=== PATIENT | female | born 1960 | race Caucasian/White ===

== ENCOUNTER 2019-11-09 06:50 | Day surgery (SDC) | payer OTHER, SELFPAY ==
[2019-10-27 08:42] VITALS: BMI 25.9
--- NOTE | 2019-10-29 12:38 | HP_ITS ---
Intake Vital Signs 10/27/19 Height 5 ft 6.5 in 10/27/19 Weight: 177 lb 4 oz 10/27/19 BMI 28.1 10/27/19 BP 152/85 H 10/27/19 Blood Pressure Location Rt brachial 10/27/19 Position Sitting 10/27/19 Respiration 20 H 10/27/19 Pulse 81 10/27/19 Temp 98.7 F 10/27/19 Temp Source Temporal 10/27/19 Pulse Oximetry (%) 96 Intake Visit Reasons: CSCOPE Chief Complaint: 3 year colonoscopy [employer] Required: No Is patient in pain?: No Allergies cimetidine [From Tagamet] Allergy (Verified 10/27/19 08:41) Hives cimetidine HCl [From Tagamet] Allergy (Verified 10/27/19 08:41) Hives Penicillins Allergy (Verified 10/27/19 08:41) Hives phenobarbital Allergy (Verified 10/27/19 08:41) Hives clarithromycin [From Biaxin] Adverse Reaction (Verified 10/27/19 08:41) Other metronidazole [From Flagyl] Adverse Reaction (Verified 10/27/19 08:41) Other Metronidazole HCl [From Flagyl] Adverse Reaction (Verified 10/27/19 08:41) Other ondansetron HCl [From Zofran] Adverse Reaction (Verified 10/27/19 08:41) Other prochlorperazine edisylate [From Compazine] Adverse Reaction (Verified 10/27/19 08:41) Other prochlorperazine maleate [From Compazine] Adverse Reaction (Verified 10/27/19 08:41) Other Medications Hydrochlorothiazide 25 mg PO DAILY 07/14/13 [History Confirmed 10/27/19] levothyroxine 100 mcg tablet 100 mcg PO DAILY tab 10/27/19 [History Confirmed 10/27/19] lisinopril 5 mg tablet 10 mg PO DAILY tab 10/27/19 [History Confirmed 10/27/19] Is last menstrual period known: No Post menopausal: Yes Patient : No PFSH Medical History GERD (gastroesophageal reflux disease) (Acute) History of breast cancer (Acute ~2012) Stomach ulcer (Acute) Thyroid disease (Acute) Hypertension (Chronic) Surgical History History of colonoscopy (Acute ~2017) History of hysterectomy (Acute) History of lumpectomy (Acute) History of tonsillectomy (Acute) Family History Mother Hypertension CVA (cerebral vascular accident) Cancer skin Father Hypertension CVA (cerebral vascular accident) Cancer skin Social History (Updated 10/29/19 @ 12:[address] Fran Anderson MD) Smoking Status: Never smoker alcohol intake: current HPI HPI Surgical H&P: Yes HPI: JHONNY BARKER, is a 59 F who presents to the office today for Evaluation for colonoscopy. Patient had her last colonoscopy on 08/22/2016 and was noted to have a polyp of the sigmoid colon at that time it was recommended that she have another repeat colonoscopy in 3 years and she presents today for this evaluation. She has not had any diarrhea she has not been noticing any blood She does have a strong family history of colon cancer. ROS General General: Yes breast cancer; no weight change, appetite, fatigue, colon cancer or weakness HEENT HEENT: No difficulty swallowing, eye injury, eye surgery, swollen glands or hoarseness Endo Endocrine: Yes thyroid disease; no diabetes mellitus, thyroid cancer, Hair loss, heat intolerance or cold intolerance Musc Musculoskeletal: No back problems, arthritis, rheumatoid arthritis, gout or joint pain Cardio Cardiovascular: Yes high blood pressure; no murmur, pacemaker, heart disease, atrial fibrillation, heart attack, heart stent, palpitations, shortness of breat with exertion or chest pain Psych Psychiatric: No depression, anxiety or hearing voices Resp Respiratory: No shortness of breath, No sleep apnea, No cough, No COPD, No asthma, No emphysema, No wheezing Gastro Gastrointestinal: No abdominal pain, No nausea or vomiting, No diarrhea, No constipation, No blood in stool, Yes acid reflux, No hemorrhoids, No ulcers, No gallbladder problem, No black,tarry stools Terence Hematologic: No blood thinners, No blood disorders, No bleeding, No anemia, No blood clots Neuro Neurologic: No weakness Exam Const General: no acute distress, well developed, well hydrated Orientation: oriented to person, oriented to place, oriented to time [facility] Head: normocephalic, atraumatic Ears: external ears normal Mouth: moist mucous membranes Eyes Sclera: sclerae normal Pupils: normal by confrontation Neck Neck: no lymphadenopathy noted Neck mass: No Thyroid: thyroid normal, symmetrical Chest Chest palpation & inspection: normal inspection of the chest Resp Effort & Inspection: normal respiratory effort Auscultation: clear to auscultation bilaterally Percussion: percussion normal Cardio Rate: regular rate Rhythm: regular rhythm Heart Sounds: no murmurs GI Palpation: soft, no hepatosplenomegaly, no masses, nontender Rectal Exam: other Other: Rectal exam deferred. Extrem General: normal to inspection, no clubbing, cyanosis or edema Assessment & Plan Problems 1. Personal history of colonic polyps Z86.010 Plan I have discussed the above with the patient. I have offered the patient colonoscopy for evaluation. I have explained the risks/benefits of the procedure and described the procedure. I have discussed the risks with the patient, including but not limited to: infection, bleeding, perforation of the GI tract requiring emergency surgery, inability to complete the procedure, injury to any internal organs, complications of anesthesia, etc. - the patient understands and agrees to proceed. I have answered all the patient's questions to the patient's satisfaction and the patient has no further questions. The patient has been given instructions for the colon cleansing preparation. Orders Orders: Colonoscopy 10/27/19 Coding Level of Care Code Off vis,new,level 3 Diagnoses Personal history of colonic polyps Z86.010 10/29/19 1238 <Electronically signed by Fran mckeon MD> Date _ Fran Anderson MD I have re-examined the patient. There are no clinical changes since date of exam.
[2019-11-08 12:58] LABS: Probe Check PASS; Specimen Processing Control PASS
[2019-11-09 07:09] VITALS: BP 132/61; PULSE 79; RESP 15; TEMP 37.2; O2SAT 99; BMI 27.8
[2019-11-09] MEDS: Lactated Ringers 1,000 ML 100 ML IV (07:18)
--- NOTE | 2019-11-09 08:48 | OP.CCLET_ITS ---
11/09/2019 Vlad Fernandez Re : Colonoscopy procedure for Christie Matthews Dear Jim This procedure was performed on Saturday, November 09, 2019. My impressions and recommendations are as follows: Impressions : - Diverticulosis in the sigmoid colon and in the descending colon. No specimens collected. - Non-bleeding internal hemorrhoids. - The examination was otherwise normal. Recommendations : - Discharge patient to home. - Resume previous diet. - Continue present medications. - Repeat colonoscopy in 10 years for screening purposes. - Return to primary care physician PRN. My findings are described in the full procedure note, which is enclosed. If I can be of further assistance, please feel free to contact me at Doctor phone number(s): , Fax: [phone], Work: . Sincerely, MD Fran Elliott MD 11/09/2019 8:48:24 AM This report has been signed electronically.
--- NOTE | 2019-11-09 08:48 | OP.COLON_ITS ---
Patient Name: Christie Matthews Procedure Date: 11/09/2019 8:16 AM Date of : 1960 Age: 59 Procedure: Colonoscopy Indications: High risk colon cancer surveillance: Personal history of colonic polyps Providers: Fran Anderson MD Referring MD: Vlad Fernandez Medicines: See the Anesthesia note for documentation of the administered medications Patient Profile: This is a 59 year old female. Refer to note in patient chart for documentation of history and physical. Last Colonoscopy: July 2016. Complications: No immediate complications. Procedure: Pre-Anesthesia Assessment: - Prior to the procedure, a History and Physical was performed, and patient medications and allergies were reviewed. The patient's tolerance of previous anesthesia was also reviewed. The risks and benefits of the procedure and the sedation options and risks were discussed with the patient. All questions were answered, and informed consent was obtained. Prior Anticoagulants: The patient has taken no previous anticoagulant or antiplatelet agents. ASA Grade Assessment: II - A patient with mild systemic disease. After reviewing the risks and benefits, the patient was deemed in satisfactory condition to undergo the procedure. After I obtained informed consent, the scope was passed under direct vision. Throughout the procedure, the patient's blood pressure, pulse, and oxygen saturations were monitored continuously. The adult colonoscope was introduced through the anus and advanced to the cecum, identified by appendiceal orifice and ileocecal valve. The colonoscopy was performed without difficulty. The patient tolerated the procedure well. The quality of the bowel preparation was good. Scope In: 8:28:50 AM Scope Withdrawal Time 0 hours 6 minutes 22 seconds Scope Out: 8:44:17 AM Total Procedure Duration Time 0 hours 15 minutes 27 seconds Findings: Multiple small and large-mouthed diverticula were found in the sigmoid colon and descending colon. No biopsies or other specimens were collected for this exam. Non-bleeding internal hemorrhoids were found during retroflexion. The hemorrhoids were mild and small. The exam was otherwise without abnormality. Impression: - Diverticulosis in the sigmoid colon and in the descending colon. No specimens collected. - Non-bleeding internal hemorrhoids. - The examination was otherwise normal. Recommendation: - Discharge patient to home. - Resume previous diet. - Continue present medications. - Repeat colonoscopy in 10 years for screening purposes. - Return to primary care physician PRN. Procedure Code(s): --- Professional --- 91674, Colonoscopy, flexible; diagnostic, including collection of specimen(s) by brushing or washing, when performed (separate procedure) Diagnosis Code(s): --- Professional --- Z86.010, Personal history of colonic polyps K64.8, Other hemorrhoids K57.30, Diverticulosis of large intestine without perforation or abscess without bleeding CPT copyright 2017 [employer]. All rights reserved. The codes documented in this report are preliminary and upon business excellence manager review may be revised to meet current compliance requirements. MD Fran Elliott MD 11/09/2019 8:48:24 AM This report has been signed electronically. Number of Addenda: 0 Note Initiated On: 11/09/2019 8:16 AM
[2019-11-09 08:49] VITALS: BP 132/61; BP 92/58; PULSE 70; RESP 14; TEMP 36.6; O2SAT 96
[2019-11-09 08:55] VITALS: BP 108/50; BP 132/61; PULSE 67; RESP 16; O2SAT 98
[2019-11-09 09:00] VITALS: BP 103/65; BP 132/61; PULSE 63; RESP 16; O2SAT 100
[2019-11-09 09:06] VITALS: BP 113/65; BP 132/61; PULSE 72; RESP 16; TEMP 36.6; O2SAT 98
[2019-11-09 09:33] VITALS: BP 132/61
== END 2019-11-09 09:33 | disposition home or self-care (01) ==
LOC: EN 06:52 → AC 06:53
PROVIDERS: Anesthesiology; PCP Family Medicine; Referring Provider Family Medicine; Visit Provider Surgery
PROC: 0DJD8ZZ Inspection of Lower Intestinal Tract, Via Natural or Artificial Opening Endoscopic (ICD-10-PCS; CPT 45378; principal; 2019-11-09 07:55)
DX: Z86.010 Personal history of colon polyps (principal); K57.30 Diverticulosis of large intestine without perforation or abscess without bleeding; K64.8 Other hemorrhoids; Z11.59 Encounter for screening for other viral diseases; Z80.0 Family history of malignant neoplasm of digestive organs; K21.9 Gastro-esophageal reflux disease without esophagitis; I10 Essential (primary) hypertension; K58.9 Irritable bowel syndrome, unspecified; F41.9 Anxiety disorder, unspecified; E06.9 Thyroiditis, unspecified; Z85.3 Personal history of malignant neoplasm of breast; Z87.19 Personal history of other diseases of the digestive system; Z79.899 Other long term (current) drug therapy; Z78.0 Asymptomatic menopausal state
CPT/HCPCS: 45378; 87635; G2023; J7120; J1610; U0003

== ENCOUNTER → 2020-01-22 | Outpatient (CLI) | payer OTHER, SELFPAY ==
[2020-01-22 07:58] VITALS: BMI 27.8
--- NOTE | 2020-01-22 08:00 | ASPS_PTH ---
PATIENT: JHONNY BARKER LOC: [facility] U#:[id number] AGE/SX: 59/F ROOM: RE01/22/[address]: Dr. Fran Anderson MD : 1960 BED: DIS: 01/22/2020 SPEC #: [id number] RECD: 01/22/20 08:54 STATUS: DIANA ALINA #: [id number] ALEXA: 01/22/20 08:[address]: Fran Anderson DEPT: CYTOLOGY RECD BY: Martinez Guillermo ENTERED: 01/22/20 10:14 SP TYPE: ASPIRATION OTHR DR: Dr. Vlad Fernandez MD Tissues: Thyroid gland, NOS Procedures: Special Stain Group II Cytology Other HEADER OPERATION: Ultrasound-guided fine needle aspiration right thyroid PRE-OP DIAGNOSIS: Uninodular goiter E04.1 TISSUE SUBMITTED: Fine needle aspiration, right thyroid (12 slides) DIAGNOSIS CYTOLOGY Right thyroid nodule, fine needle aspiration (smears): Adequate for evaluation. Negative, consistent with benign follicular nodule. AM:anshu 01/25/20 CYTOLOGY STUDY Slides are reviewed. CYTOLOGY GROSS Received are 12 smears labeled with the patient's name and designated per the requisition as right thyroid. Submitted for staining. / anshu 01/22/20 TC:5 CPT: 94115
== END | disposition home or self-care (01) ==
LOC: LABSPEC 09:54
PROVIDERS: PCP Family Medicine; Referring Provider Surgery; Visit Provider Surgery
DX: E04.1 Nontoxic single thyroid nodule (principal)
CPT/HCPCS: 88161; 88313

== ENCOUNTER 2020-08-05 08:31 | Outpatient (RCR) | payer OTHER, SELFPAY ==
[2020-01-22 07:58] VITALS: BMI 27.8
[2020-08-05] MEDS: COVID-19 VACC, MRNA(PFIZER)/PF 30 MCG/0.3 ML SYRINGE IM (13:48)
[2020-08-26] MEDS: COVID-19 VACC, MRNA(PFIZER)/PF 30 MCG/0.3 ML SYRINGE IM (13:43)
== END 2020-11-01 23:59 ==
LOC: IMMUN 08:31
PROVIDERS: PCP Family Medicine; Visit Provider Family Medicine
DX: Z23 Encounter for immunization (principal)
CPT/HCPCS: 0001A; 0002A; 91300